=== PATIENT | male | born 1985 | race African-American/Black ===

== ENCOUNTER 2023-07-12 20:18 | Emergency (ER) | payer OTHER, BC | END 2023-07-12 22:45 | disposition home or self-care (01) | LOC: CSHERS 20:18 | DX: S13.4XXA Sprain of ligaments of cervical spine, initial encounter (principal); S00.83XA Contusion of other part of head, initial encounter; V89.2XXA Person injured in unspecified motor-vehicle accident, traffic, initial encounter | CPT/HCPCS: 70450; 70486; 72125 ==